=== PATIENT | male | born 1975 | race Caucasian/White ===

== ENCOUNTER 2021-02-18 17:17 | Emergency (ER) | payer OTHER ==
[~2021-02-18 17:17] MED LIST: ASPIRIN325 M1 PO; AUGMENTIN250 MG PO; CLEOCIN300 MG PO; COREG 6.25MG6.25 MG PO; COZAAR 25MG TAB25 MG PO; IBUPROFEN800 MG PO; LOPRESSOR25 MG PO; MEDROL 4MG DOSEP4 MG PO; MOTRIN600 MG PO; NORCO 5-325 TA1 EACH PO; PERCOCET 5-3251 EACH PO; PLAVIX75 MG PO; PRAVACHOL80 MG PO; PREDNISONE50 MG PO; PROTONIX 40MG T40 MG PO; VENTOLIN HFA IN18 GM INH; ZOFRAN4 MG PO; ZPAK PO
[2021-02-18 20:54] LABS: BASOPHIL 0.6 % (0-2); EOSINOPHIL 1.4 % (0-5); HGB 13.9 g/dl (13.2-18.0); LYMPHOCYTE 24.5 % (15-48); MCH 29.3 pg (25.0-31.0); MCHC 34.8 g/dL (32.0-36.0); MCV 84.2 fL (78.0-100.0); MPV 10.1 fL (6.0-9.5); NEUTROPHIL 68.2 % (41-80); NRBC 0; PLT 315 K/uL (150-400); RBC 4.75 M/uL (4.70-6.00); RDW 13.2 % (11.5-14.0); WBC 11.5 K/uL (4.0-10.5)
[2021-02-18 21:15] LABS: ALBUMIN 3.5 g/dL (3.4-5.0); BILIRUBIN - TOTAL 0.4 mg/dL (0.2-1.0); BUN/CREAT RATIO (CALC) 12.8 RATIO; CREATININE 1.49 mg/dL (0.67-1.17); GLOBULIN (CALCULATION) 3.8 g/dL; POTASSIUM 4.4 mmol/L (3.5-5.1); TOTAL PROTEIN 7.3 g/dL (6.4-8.2)
[2021-02-18 22:31] LABS: BILIRUBIN NEGATIVE (NEGATIVE); BLOOD 1+ Ery/uL (NEGATIVE); CLARITY CLEAR (CLEAR); COLOR YELLOW (YELLOW); GLUCOSE (U) NORMAL (NORMAL); LEUKOCYTES NEGATIVE Leu/uL (NEGATIVE); NITRITE NEGATIVE (NEGATIVE); PROTEIN NEGATIVE (NEGATIVE); SPECIFIC GRAVITY 1.025 (1.001-1.030); pH 5.5 (5.0-9.0)
[2021-02-18 22:38] LABS: AMORPHOUS URATES CRYSTALS TRACE; URINARY RBC RARE
[2021-02-18] MEDS ORDERED: NORVASC 10MG TA10 MG PO (22:50)
[2021-02-18] MEDS ORDERED: CYCLOBENZAPRINE10 MG PO (22:50)
[2021-02-18] MEDS ORDERED: NORCO 5-325 TA1 EACH PO (22:50)
[2021-02-18] MEDS ORDERED: PLAVIX75 MG PO (22:50)
[2021-02-18] MEDS ORDERED: MEDROL 4MG DOSEP4 MG PO (22:50)
== END 2021-02-18 23:08 | disposition home or self-care (01) ==
LOC: FER 17:17
PROVIDERS: Emergency Medicine Emergency Medical Services
DX: S39.012A Strain of muscle, fascia and tendon of lower back, initial encounter (principal); S46.811A Strain of other muscles, fascia and tendons at shoulder and upper arm level, right arm, initial encounter; S20.311A Abrasion of right front wall of thorax, initial encounter; S80.211A Abrasion, right knee, initial encounter; F17.210 Nicotine dependence, cigarettes, uncomplicated; I10 Essential (primary) hypertension; V48.5XXA Car driver injured in noncollision transport accident in traffic accident, initial encounter; Y92.410 Unspecified street and highway as the place of occurrence of the external cause
CPT/HCPCS: 36415; 70450; 71260; 72125; 73560; 80053; 81001; 83605; 83690; 84484; 85025; 93005; J1100; J1170; J1885; J2405; J2800; J7030; J7050; Q9967